=== PATIENT | male | born 1950 | race Caucasian/White ===

== ENCOUNTER 2018-10-09 10:06 | Inpatient (IN) | payer MEDICARE ==
[2018-10-09] VITALS (9 sets, daily range): BP systolic 123–143; BP diastolic 63–93
[~2018-10-09] VITALS: Ht 187.9 cm; Wt 115.3 kg
--- NOTE | ~2018-10-09 | EKG ---
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
--- NOTE | ~2018-10-09 | CON ---
[place], [place] REPORT OF CONSULTATION [id number] UN[facility] #: [id number] ROOM: 528 DOCTOR: NANCIE BAH MD BIRTHDATE: [birth year] DOS: 10/09/2018 GASTROENDOSCOPIC CONSULTATION HISTORY OF PRESENT ILLNESS: A 68-year-old patient, who has presented with chief complaint of abdominal pain, sudden in nature, cross abdominal, and not feeling well. The patient had to be admitted through Emergency Room, that limited in his past medical history. He has had previous study that is limited to cardiopulmonary testings. At the time of admission, his electrocardiogram was benign. CBC: White blood cell of 28,000, H and H of 16 and 48. Differential within normal limits. Comprehensive metabolic panel: Creatinine is 1.3, electrolyte balanced. SGOT and SGPT of 300 and 500 plus alkaline phosphatase of 296 plus bilirubin of 1.1 was noted. His gallbladder sonogram was done, has cholelithiasis, gallbladder wall thickening of 0.7, diffuse hepatic steatosis, no biliary dilation was noted. CT scan of the abdomen and pelvis was done, acute pancreatitis with mild peripancreatic fluid and inflammatory changes, cholelithiasis is noted, and nonspecific gallbladder wall thickening with difficulty to exclude coexisting cholecystitis. Platelet function test was 116. This was obtained due to the fact that the patient has been taking an aspirin a day, also admitting a half a case of beer at least per week. PAST MEDICAL HISTORY: Associated with hypertension. PAST SURGICAL HISTORY: Associated with back surgery and bilateral knee. MEDICATIONS: He is on ABBEY inhibitor and hydrochlorothiazide. ALLERGIES: No known medication. SOCIAL HISTORY: Nonsmoker; however, alcohol consumer. REVIEW OF SYSTEMS: HEENT: In general, denies double vision, blurred vision. RESPIRATORY: Denies shortness of breath. CARDIOVASCULAR: Denies chest pain. DIGESTIVE SYSTEM: Cross abdominal pain, nauseated, not feeling well. SKIN: In general, he has a very erythematic head and neck skin. Consistent with possible hemochromatosis versus alcoholic dependency. PHYSICAL EXAMINATION: HEENT: Head is normocephalic, nontraumatic. Mouth and buccal mucosa benign. NECK: Supple. No thyromegaly. No cervical lymphadenopathy. CHEST: Symmetric anatomy, equal expansion. No wheeze. No rhonchi. HEART: Normal sinus rhythm. No gallop. No murmur. ABDOMEN: Obese, large, soft. No hepato-organomegaly. Bowel sounds present. EXTREMITIES: No cyanosis. No pedal edema. NEUROLOGIC: He is alert and oriented to time, place, and person. IMPRESSION: 1. Pancreatitis, etiology to be ruled out. Alcohol versus choledocholithiasis [place], [place] REPORT OF CONSULTATION NAME: ELVIRA LAKE UNIT #: [id number] ROOM: 528 DOCTOR: NANCIE BAH MD BIRTHDATE: [birth year] versus cholecystitis. Lipase of greater than 11,000 noticed. 2. Abnormal liver function test appreciated. 3. Past medical history of also hypertension systemically was noticed. PLAN AND DISCUSSION: Due to the concern for possibility of choledocholithiasis, an ERCP would be considered. NANCIE BAH MD CM:CONSTR:REPORT OF CONSULTATION 1614 10/10/18 0805 interface
--- NOTE | ~2018-10-09 | EKG ---
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
--- NOTE | ~2018-10-09 | O ---
[place], [place] OPERATIVE NOTE NAME: ELVIRA LAKE UNIT #: [id number] ROOM: 528 DOCTOR: NANCIE BAH MD BIRTHDATE: [birth year] DOS: 10/09/2018 GASTROENDOSCOPIC REPORT INDICATION: The patient has presented with lipase of greater than 11,000, abnormal liver function test, suspected for obstructive pathology as well as others as listed in consultation. PROCEDURE: Today's procedure part of investigation is ERCP and precut papillotomy. PREMEDICATION: Propofol and intubation by anesthesia. REPORT: After putting the patient in left lateral position and application of lubricant to the scope, the scope was introduced, which is olympus side-viewing duodenal scope, advanced through the length of esophagus into gastric pouch into duodenal bulb in front of the ampulla of Vater. Initially, intubation of the papilla with a cannulatome was difficult because of the papillary stenosis. After appropriate maneuvers and usage of guidewire, ampulla was cannulated; however, is immediately post-cannulization is sharing common duct and pancreatic duct together. Pancreatic duct appears to be normal. Common duct appears to be normal. As the dye travels to beyond cystic duct, gallbladder is not feeling a possibility of cholecystitis. Obstructive pattern is raised. A small precut papillotomy was done to ease flow of dye and bile. This was successfully documented with photographic series. The patient extubated and tolerated the procedure well. Air was suctioned out. 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 PLAN AND DISCUSSION: Pancreatitis is going to be addressed with hydration, pain management, and nausea. Bile reflux gastritis is going to be addressed with PPI and surgical consultation. Possible HIDA if preferred by surgical team. This is not going to be available today and is going to be doable tomorrow. [place], [place] OPERATIVE NOTE NAME: ELVIRA LAKE UNIT #: [id number] ROOM: 528 DOCTOR: NANCIE BAH MD BIRTHDATE: [birth year] NANCIE BAH MD CM:CHACEECORD:OPERATIVE NOTE 1614 [id number] NANCIE BAH MD 10/10/18 0810 interface
[2018-10-09 10:34] LABS: HEMATOCRIT 48.6 % (42.0-52.0); HEMOGLOBIN 16.9 g/dl (14.0-18.0); MEAN CELL VOLUME 95.1 fl (80.0-94.0); MEAN CORPUSCULAR HGB 33.1 pg (27.0-31.0); MEAN CORPUSCULAR HGB CONC 34.8 g/dl (33.0-37.0); MEAN PLATELET VOLUME 9.5 fl (9.6-12.3); PLATELET COUNT AUTOMATED 449 10*3/uL (130-400); RED BLOOD COUNT 5.11 10*6/uL (4.50-5.90); RED CELL DISTRI WIDTH 12.5 % (0-14.5); WHITE BLOOD COUNT 28.8 10*3/uL (4.8-10.8)
[2018-10-09 10:37] LABS: BILIRUBIN 1+ (NEGATIVE); BLOOD NEGATIVE (NEGATIVE); CLARITY SL CLOUDY (CLEAR); COLOR ORANGE (YELLOW); GLUCOSE NEGATIVE (NEGATIVE); KETONE TRACE (NEGATIVE); LEUKO ESTERASE NEGATIVE (NEGATIVE); NITRITE POSITIVE (NEGATIVE); PH 5.5 (5.0-9.0); SPECIFIC GRAVITY 1.025 (1.005-1.030)
[2018-10-09 10:48] LABS: BACTERIA 3+; MUCOUS 2+
[2018-10-09 10:56] LABS: PLATELET SUFFICIENCY HIGH (NORMAL); TOTAL CELLS COUNTED 100 #CELLS
[2018-10-09 10:58] LABS: ALBUMIN 3.6 gm/dl (3.1-4.5); ALKALINE PHOSPHATASE 296 U/L (45-117); BUN 24 mg/dl (7-24); CHLORIDE 101 mmol/L (98-107); CREATININE 1.36 mg/dL (0.70-1.30); SGOT/AST 338 IU/L (3-35); SGPT/ALT 598 U/L (12-78); SODIUM 137 mmol/L (136-145)
[2018-10-09 10:59] LABS: TROPONIN I < 0.015 ng/ml (<0.045)
[2018-10-09] MEDS ORDERED: LOSARTAN-HCTZ1 EAC1 PO (15:01)
[2018-10-10] VITALS: BP 130/86
[2018-10-10 07:42] LABS: MEAN CELL VOLUME 96.1 fl (80.0-94.0); MEAN CORPUSCULAR HGB 33.5 pg (27.0-31.0); MEAN CORPUSCULAR HGB CONC 34.9 g/dl (33.0-37.0); MEAN PLATELET VOLUME 9.7 fl (9.6-12.3); PLATELET COUNT AUTOMATED 344 10*3/uL (130-400); RED BLOOD COUNT 4.33 10*6/uL (4.50-5.90); WHITE BLOOD COUNT 29.4 10*3/uL (4.8-10.8)
[2018-10-10 07:46] LABS: HEMATOCRIT 41.6 % (42.0-52.0); HEMOGLOBIN 14.5 g/dl (14.0-18.0)
[2018-10-10 08:00] LABS: ALBUMIN 2.7 gm/dl (3.1-4.5); ALKALINE PHOSPHATASE 195 U/L (45-117); BUN 22 mg/dl (7-24); CHLORIDE 106 mmol/L (98-107); CHOLESTEROL 108 mg/dL (<200); CREATININE 1.09 mg/dL (0.70-1.30); HDL CHOLESTEROL 20 mg/dl (40-60); LDL CHOLESTEROL 70 mg/dL (9-159); PHOSPHOROUS 2.3 mg/dL (2.5-4.9); POTASSIUM 3.6 mmol/L (3.5-5.1); SGOT/AST 71 IU/L (3-35); SGPT/ALT 289 U/L (12-78); SODIUM 140 mmol/L (136-145); TOTAL PROTEIN 6.8 gm/dL (6.4-8.2); TRIGLYCERIDES 92 mg/dl (<150); VLDL CHOLESTEROL 18 mg/dL (6-40)
[2018-10-10 08:06] LABS: LIPASE 1784 U/L (73-393)
[2018-10-10 08:12] LABS: PLATELET SUFFICIENCY NORMAL (NORMAL); TOTAL CELLS COUNTED 100 #CELLS
[2018-10-10 08:14] VITALS: BP 135/78
[2018-10-10 09:47] LABS: VITAMIN D, 25-HYDROXY 53.8 ng/mL (30-100)
[2018-10-10 12:00] VITALS: BP 138/81
[2018-10-10 16:52] VITALS: BP 138/74
[2018-10-10 20:00] VITALS: BP 120/69
[2018-10-11] VITALS: BP 120/60
[2018-10-11 06:19] LABS: HEMATOCRIT 37.9 % (42.0-52.0); HEMOGLOBIN 13.1 g/dl (14.0-18.0); MEAN CELL VOLUME 98.2 fl (80.0-94.0); MEAN CORPUSCULAR HGB 33.9 pg (27.0-31.0); MEAN CORPUSCULAR HGB CONC 34.6 g/dl (33.0-37.0); MEAN PLATELET VOLUME 9.9 fl (9.6-12.3); PLATELET COUNT AUTOMATED 348 10*3/uL (130-400); RED BLOOD COUNT 3.86 10*6/uL (4.50-5.90); RED CELL DISTRI WIDTH 13.1 % (0-14.5); WHITE BLOOD COUNT 21.7 10*3/uL (4.8-10.8)
[2018-10-11 06:42] LABS: BASOPHILS 1 % (0-1); PLATELET SUFFICIENCY NORMAL (NORMAL); TOTAL CELLS COUNTED 100 #CELLS
[2018-10-11 06:53] LABS: ALBUMIN 2.4 gm/dl (3.1-4.5); ALKALINE PHOSPHATASE 146 U/L (45-117); BUN 20 mg/dl (7-24); CHLORIDE 110 mmol/L (98-107); CREATININE 0.99 mg/dL (0.70-1.30); LIPASE 354 U/L (73-393); PHOSPHOROUS 1.7 mg/dL (2.5-4.9); POTASSIUM 3.4 mmol/L (3.5-5.1); SGOT/AST 24 IU/L (3-35); SGPT/ALT 154 U/L (12-78); SODIUM 142 mmol/L (136-145); TOTAL PROTEIN 6.2 gm/dL (6.4-8.2)
[2018-10-11 08:00] VITALS: BP 152/82
[2018-10-11] MEDS ORDERED: AUGMENTIN 875875 MG PO (10:50)
== END 2018-10-11 11:12 | disposition home or self-care (01) | DRG 871 ==
LOC: ED 10:06 → 5E 14:20 → EDHOLD 14:20 → 5E 14:45
PROVIDERS: Emergency Medicine; Internal Medicine; ADMIT Internal Medicine
PROC: BF141ZZ Fluoroscopy of Gallbladder, Bile Ducts and Pancreatic Ducts using Low Osmolar Contrast (ICD-10-PCS; principal; 2018-10-09)
DX: A41.9 Sepsis, unspecified organism (principal); K85.90 Acute pancreatitis without necrosis or infection, unspecified; N17.0 Acute kidney failure with tubular necrosis; E44.0 Moderate protein-calorie malnutrition; N39.0 Urinary tract infection, site not specified; K80.00 Calculus of gallbladder with acute cholecystitis without obstruction; R65.20 Severe sepsis without septic shock; D47.3 Essential (hemorrhagic) thrombocythemia; E66.09 Other obesity due to excess calories; I10 Essential (primary) hypertension; K76.0 Fatty (change of) liver, not elsewhere classified; E83.41 Hypermagnesemia; E83.39 Other disorders of phosphorus metabolism; E83.51 Hypocalcemia; Z68.33 Body mass index [BMI] 33.0-33.9, adult; Z79.82 Long term (current) use of aspirin; Z79.899 Other long term (current) drug therapy; Z68.32 Body mass index [BMI] 32.0-32.9, adult

== ENCOUNTER → 2019-05-09 | Outpatient (CLI) | payer MEDICARE ==
[~2019-05-09] MED LIST: AUGMENTIN 875875 MG PO; LOSARTAN-HCTZ1 EAC1 PO
== END | disposition home or self-care (01) ==
LOC: LAB 09:48
DX: E83.52 Hypercalcemia (principal)